=== PATIENT | male | born 1990 ===

== ENCOUNTER 2023-09-03 17:46 | Emergency (ER) | payer OTHER ==
[~2023-09-03] VITALS: Ht 180.3 cm; Wt 90.7 kg
[2023-09-03 18:45] LABS: HEMATOCRIT 46.6 % (39.0-48.0); HEMOGLOBIN 16.4 g/dL (13-16.00); MEAN CORPUSCULAR HEMOGLOBIN 29.9 pg (27.00-32.0); MEAN CORPUSCULAR HGB CONC 35.2 g/dl (32.0-36.0); PLATELET COUNT 265 K/uL (150-450); RED BLOOD COUNT 5.48 M/uL (4.00-6.00); RED CELL DISTRIBUTION WIDTH 13.4 % (11.5-14.5)
[2023-09-03 19:03] LABS: INR 1.09; PARTIAL THROMBOPLASTIN TIME 24.5 SECONDS (22.0-34.0); PROTHROMBIN TIME 11.4 SECONDS (9.0-11.5)
[2023-09-03 19:12] LABS: ALBUMIN 3.9 gm/dL (3.4-5.0); BILIRUBIN TOTAL 0.5 mg/dL (0.3-1.2); CREATININE SERUM 0.98 mg/dL (0.70-1.30); GFR 88.08; GLOBULINA 3.3 G/DL (2.4-3.5); POTASSIUM 3.87 mEq/L (3.5-5.1); TOTAL PROTEIN 7.2 gm/dL (6.4-8.2)
[2023-09-03 19:47] LABS: PH,URINE 5.5 (5.0-8.0); URINE APPEARANCE Clear; URINE BILIRRUBIN Negative (NEGATIVE); URINE BLOOD Negative; URINE COLOR Yellow; URINE GLUCOSE Negative (NEGATIVE); URINE LEUKOCYTE Negative; URINE NITRATE Negative; URINE PROTEIN Negative (NEGATIVE); URINE UROBILINOGEN 0.2 E.U./dl
[2023-09-03 19:51] LABS: URINE BACTERIA 18.8 uL (0.0-1933); URINE EPITHELIAL CELLS 2.1 uL (0.0-38.8); URINE RBC 2.7 uL (0.0-20.8)
[2023-09-03 20:03] LABS: URINE WBC 1.5 uL (0.0-23.2)
== END 2023-09-03 22:23 | disposition home or self-care (01) ==
LOC: ER 17:46
PROVIDERS: General Practice
DX: R21 Rash and other nonspecific skin eruption (principal); Z20.822 Contact with and (suspected) exposure to COVID-19